=== PATIENT | male | born 1995 | race Hispanic/Latino ===

== ENCOUNTER 2019-07-08 03:56 | Emergency (ER) | payer BC ==
[2019-07-08] MEDS ORDERED: ACETAMINOPHEN EXTRA STRENGTH 500 MG TABLET ONE (04:53)
== END 2019-07-08 05:06 | disposition home or self-care (01) ==
LOC: EDH 03:56
DX: R07.89 Other chest pain (principal); R50.9 Fever, unspecified; M54.5 Low back pain
CPT/HCPCS: 87804